=== PATIENT | male | born 1955 | race Hispanic/Latino ===

== ENCOUNTER 2017-01-09 20:22 | Emergency (ER) | payer BC ==
[2017-01-09 20:28] VITALS: BP 148/98; PULSE 71; RESP 16; TEMP 98.4; O2SAT 98
--- NOTE | 2017-01-09 20:52 | ED PDOC ---
HPI: General Adult Time Seen by Provider: 01/09/17 20:30 Chief Complaint (Nursing): Bite Chief Complaint (Provider): Dog Bite History Per: Patient History/Exam Limitations: no limitations Onset/Duration Of Symptoms: Hrs Have you had recent travel within the past 21 days to any of the following countries: [place], [place], [place] or [place]?: No Current Symptoms Are (Timing): Still Present Additional Complaint(s): Alexei Reddy, a 61 year old male, presents to the ED with a dog bite. The patient states that earlier today he was bitten by his brother's dog on his right hand and left forearm. Tetanus is up to date. Denies numbness and tingling. Past Medical History Reviewed: Historical Data, Nursing Documentation, Vital Signs Vital Signs: Last Vital Signs Temp 98.4 F 01/09/17 20:25 Pulse 71 01/09/17 20:25 Resp 16 01/09/17 20:25 BP 148/98 H 01/09/17 20:25 Pulse Ox 98 01/09/17 20:58 - Medical History PMH: No Chronic Diseases - Family History Family History: States: Unknown Family Hx - Immunization History Hx Tetanus Toxoid Vaccination: Yes - Home Medications Home Medications: Ambulatory Orders Medication Instructions Recorded Amoxicillin/Clavulanate [Augmentin 1 tab PO BID #20 tab 01/09/17 500 MG-125 MG] - Allergies Allergies/Adverse Reactions: Allergies Allergy/AdvReac Type Severity Reaction Status Date / Time No Known Allergies Allergy Verified 01/09/17 20:25 Review of Systems Musculoskeletal: Positive for: Other (Bite on right hand and left forearm.) Neurological: Positive for: Other (Denies tingling). Negative for: Numbness Physical Exam - Reviewed Nursing Documentation Reviewed: Yes Vital Signs Reviewed: Yes - Physical Exam Appears: Positive for: Non-toxic, No Acute Distress Extremity: Positive for: Normal ROM, Other (Very superficial puncture wound on the first interdigital webspace, second MCP, fourth MCP and on left volar forearm.). Negative for: Tenderness, Deformity, Swelling Neurologic/Psych: Positive for: Alert, Oriented, Gait - ECG O2 Sat by Pulse Oximetry: 98 (RA) Pulse Ox Interpretation: Normal - Progress ED Course And Treament: Wound irrigated heavily with NS. DSD applied. Medical Decision Making Medical Decision Makin:30 Initial Impression: 61 year old male presenting with a dog bite Scribe Attestation Documented by Sunni Sarah acting as a scribe for Maynor Desir PA-C. MD Scribe Attestation All medical record entries made by the Scribe were at my direction and personally dictated by me. I have reviewed the chart and agree that the record accurately reflects my personal performance of the history, physical exam, medical decision making, and the department course for this patient. I have also personally directed, reviewed, and agree with the discharge instructions and disposition. Disposition - Clinical Impression Clinical Impression: Dog bite - Patient ED Disposition Is Patient to be Admitted: No - Disposition Disposition: Routine/Home Disposition Time: 21:00 Condition: STABLE Prescriptions: Amoxicillin/Clavulanate [Augmentin 500 MG-125 MG] 1 tab PO BID #20 tab Instructions: Animal Bite (ED) Print Language: [place] ISLAND[place]
== END 2017-01-09 21:11 | disposition home or self-care (01) ==
LOC: H.ER 20:22
DX: S61.411A Laceration without foreign body of right hand, initial encounter (principal); W54.0XXA Bitten by dog, initial encounter; Y92.89 Other specified places as the place of occurrence of the external cause

== ENCOUNTER 2018-06-15 10:45 | Inpatient (IN) | payer BC ==
[2018-06-15 10:48] VITALS: BMI 26.6
[2018-06-15] MEDS ORDERED: Iohexol 240 (50 ml) PO ONE (11:16)
[2018-06-15] MEDS ORDERED: Sodium Chloride 0.9% 1,000 ML IV STA (11:17)
[2018-06-15] MEDS ORDERED: Iohexol 240 (50 ml) ONE (11:32)
[2018-06-15 11:35] LABS: SQUAMOUS EPITHIAL < 1 /hpf (0-5); URINE BILIRUBIN NEGATIVE (NEGATIVE); URINE BLOOD SMALL (NEGATIVE); URINE CLARITY CLEAR (Clear); URINE COLOR YELLOW (YELLOW); URINE GLUCOSE (UA) NEG (Normal); URINE LEUKOCYTE ESTERASE NEG Leu/uL (Negative); URINE PROTEIN NEGATIVE (NEGATIVE); URINE UROBILINOGEN 0.2-1.0 mg/dL (0.2-1.0)
[2018-06-15 11:36] LABS: BASO % 0.4 % (0.0-2.0); EOS # 0.2 K/uL (0.0-0.7); EOS % 1.8 % (0.0-4.0); HEMOGLOBIN 14.9 g/dL (12.0-18.0); LYMPH # 1.3 K/uL (1.0-4.3); LYMPH % 13.9 % (20.0-40.0); MEAN CELL VOLUME 98.9 fl (80.0-94.0); MEAN CORPUSCULAR HEMOGLOBIN 32.3 pg (27.0-31.0); MEAN CORPUSCULAR HGB CONC 32.6 g/dL (33.0-37.0); MEAN PLATELET VOLUME 8.4 fl (7.2-11.7); MONO # 0.9 K/uL (0.0-0.8); MONO % 10.4 % (0.0-10.0); NEUT # 6.6 K/uL (1.8-7.0); NEUT % 73.5 % (50.0-75.0); RBC 4.63 Mil/uL (4.40-5.90); RED CELL DISTRIBUTION WIDTH 14.2 % (11.5-14.5)
[2018-06-15 11:46] LABS: ALB/GLOB RATIO 1.3 (1.0-2.1); ALBUMIN 4.2 g/dL (3.5-5.0); ALT/SGPT 57 U/L (21-72); AST/SGOT 37 U/L (17-59); BLOOD UREA NITROGEN 22 mg/dl (9-20); CALCIUM 9.4 mg/dL (8.4-10.2); GFR NON-AFRICAN AMERICAN > 60; LIPASE 51 U/L (23-300)
--- NOTE | 2018-06-15 12:34 | ED PDOC ---
HPI: Abdomen Time Seen by Provider: 06/15/18 11:06 Chief Complaint (Nursing): Abdominal Pain Chief Complaint (Provider): Abdominal Pain History Per: Patient History/Exam Limitations: no limitations Onset/Duration Of Symptoms: Days (x1) Current Symptoms Are (Timing): Still Present Location Of Pain/Discomfort: Epigastric Quality Of Discomfort: Sharp, "Pain" Associated Symptoms: Back Pain (radiating from abdomen) Alleviating Factors: None Last Bowel Movement: Today Additional Complaint(s): 63 year old male with a history of hypertension, high cholesterol and rheumatoid arthritis presents to the ED with sharp, upper abdominal pain radiating to his back since he awoke in the middle of the night. He has taken Simethocone and passed a bowel movement with no relief. Patient regularly takes Amanda, methotrexate and a H2 calixto. He used to take a PPI but switched after a colonoscopy with a physician in [place]. Denies nausea, vomiting, chest pain, dizziness and difficulty breathing. PMD: Dr. Edvin Blankenship Past Medical History Reviewed: Historical Data, Nursing Documentation, Vital Signs Vital Signs: Last Vital Signs Temp 97.9 F 06/15/18 10:48 Pulse 59 L 06/15/18 10:48 Resp 17 06/15/18 10:48 BP 191/94 H 06/15/18 10:48 Pulse Ox 100 06/15/18 10:48 - Medical History PMH: HTN, Hypercholesterolemia, Rheumatoid Arthritis - Surgical History Other surgeries: several orthopedic procedures. Denies history of abdominal surgery - Family History Family History: States: Unknown Family Hx - Immunization History Hx Tetanus Toxoid Vaccination: Yes Hx Influenza Vaccination: Yes - Home Medications Home Medications: Ambulatory Orders Medication Instructions Recorded Adalimumab [Humira] 40 mg SC Q14D 06/15/18 Atorvastatin [Lipitor] 10 mg PO DAILY 06/15/18 Folic Acid 1 mg PO DAILY 06/15/18 Losartan [Cozaar] 50 mg PO DAILY 06/15/18 Meloxicam [Mobic] 15 mg PO DAILY 06/15/18 Methotrexate 10 mg PO WESA 06/15/18 Ranitidine HCl [Zantac] 150 mg PO DAILY 06/15/18 - Allergies Allergies/Adverse Reactions: Allergies Allergy/AdvReac Type Severity Reaction Status Date / Time No Known Allergies Allergy Verified 06/15/18 11:01 Review of Systems ROS Statement: Except As Marked, All Systems Reviewed And Found Negative Constitutional: Negative for: Fever, Malaise, Weight loss Gastrointestinal: Positive for: Abdominal Pain. Negative for: Vomiting, Melena Skin: Negative for: Rash Neurological: Negative for: Headache Physical Exam - Reviewed Nursing Documentation Reviewed: Yes Vital Signs Reviewed: Yes - Physical Exam Appears: Positive for: Non-toxic, No Acute Distress Head Exam: Positive for: ATRAUMATIC, NORMAL INSPECTION, NORMOCEPHALIC Skin: Positive for: Normal Color, Warm, Dry. Negative for: Rash Eye Exam: Positive for: EOMI, Normal appearance, PERRL Neck: Positive for: Normal, Painless ROM, Supple Cardiovascular/Chest: Positive for: Regular Rate, Rhythm. Negative for: Murmur Respiratory: Positive for: Normal Breath Sounds. Negative for: Wheezing, Respiratory Distress Gastrointestinal/Abdominal: Positive for: Tenderness (epigastric). Negative for: Mass, Guarding Extremity: Positive for: Normal ROM (upper and lower extremities). Negative for: Deformity Neurologic/Psych: Positive for: Alert, Oriented. Negative for: Motor/Sensory Deficits - Laboratory Results Result Diagrams: 06/15/18 11:25 06/15/18 11:25 - ECG ECG: Positive for: Interpreted By Me, Viewed By Me ECG Rhythm: Positive for: Sinus Bradycardia. Negative for: ST/T Changes, Nonspecific Changes Rate: 59 O2 Sat by Pulse Oximetry: 100 (RA) Pulse Ox Interpretation: Normal Medical Decision Making Medical Decision Makin:16 Workup for abdominal pain Initial Plan: --Abd Pelvis CT w/ contrast --EKG --CMP --Lipase --Troponin --CBC --NS IV --Omnipaque 50 ml PO --Pepcid 20 mg IV --Toradol 15 mg IVP --UA 12:21 --Abdomen Limited US 12:30 Blood work was remarkable with the exception of a BUN level of 22. Otherwise, normal hemoglobin and negative troponin. urine shows trace microscopic hematuria. Pending imaging and reevaluation. 14:01 Abdomen US FINDINGS: LIVER: Measures 16.99 cm in length. There is diffuse echogenicity of the liver parenchyma. No mass. No intrahepatic bile duct dilatation. GALLBLADDER: The gallbladder is distended. No wall thickening, gallstones or pericholecystic fluid. The sonographic Dickens's sign is negative. COMMON BILE DUCT: Measures increased 4.95 mm. No stones. No dilatation. PANCREAS: Unremarkable as visualized. No mass. No ductal dilatation. RIGHT KIDNEY: Measures 10.9 cm in length. Normal echogenicity. No calculus, mass, or hydronephrosis. There is a 1.4 x 1.5 x 1.6 cm simple cyst in the lower pole and 0.9 x 1.4 x 1.1 cm septated cyst in the lower pole. AORTA: No aneurysmal dilatation. IVC: Unremarkable. OTHER FINDINGS: None . IMPRESSION: Gallbladder distention. No cholelithiasis, wall thickening or pericholecystic fluid. The sonographic Dickens's sign is negative. Mild hepatomegaly. Diffuse increased echogenicity in the liver may reflect hepatic steatosis however parenchymal infectious/ inflammatory etiologies cannot be entirely excluded. Clinical and laboratory correlation is advised. 15:44 --Patient admitted to inpatient care due to calculous cholecystitis. d/w Dr Blankenship PMD, Dr Hampton and surgical brace maker, Dr Blankenship requests Dr Dan for surgery he will inform Scribe Attestation: Documented by Marian Marshall, acting as a scribe for Pablo Tobin III, DO Provider Scribe Attestation: All medical record entries made by the Scribe were at my direction and personally dictated by me. I have reviewed the chart and agree that the record accurately reflects my personal performance of the history, physical exam, medical decision making, and the department course for this patient. I have also personally directed, reviewed, and agree with the discharge instructions and disposition. Disposition - Clinical Impression Clinical Impression: Cholecystitis - Patient ED Disposition Is Patient to be Admitted: Yes Counseled Patient/Family Regarding: Studies Performed, Diagnosis, Need For Followup - Disposition Disposition Time: 13:30 Condition: STABLE - Pt Status Changed To: Hospital Disposition Of: Inpatient - Admit Certification Admit to Inpatient:: After my assessment, the patient will require hospitalization for at least two midnights. This is because of the severity of symptoms shown, intensity of services needed, and/or the medical risk in this patient being treated as an outpatient. - POA Present On Arrival: None
[2018-06-15] MEDS ORDERED: Iohexol 300 100 ML IJ ONE (13:42)
[2018-06-15] MEDS ORDERED: Sodium Chloride 0.9% 50 ML IV ONE (13:43)
--- NOTE | 2018-06-15 14:01 | CARD ---
APPROVED REPORT Date of service: 06/15/2018 EKG Measurement Heart [id number] CT [id number] <Conclusion> Sinus bradycardia Otherwise normal ECG
--- NOTE | 2018-06-15 14:04 | US ---
Date of service: 06/15/2018 HISTORY: RUQ sono, abd pain COMPARISON: None. TECHNIQUE: Sonographic evaluation of the right upper quadrant of the abdomen. FINDINGS: LIVER: Measures 16.99 cm in length. There is diffuse echogenicity of the liver parenchyma. No mass. No intrahepatic bile duct dilatation. GALLBLADDER: The gallbladder is distended. No wall thickening, gallstones or pericholecystic fluid. The sonographic Dickens's sign is negative. COMMON BILE DUCT: Measures increased 4.95 mm. No stones. No dilatation. PANCREAS: Unremarkable as visualized. No mass. No ductal dilatation. RIGHT KIDNEY: Measures 10.9 cm in length. Normal echogenicity. No calculus, mass, or hydronephrosis. There is a 1.4 x 1.5 x 1.6 cm simple cyst in the lower pole and 0.9 x 1.4 x 1.1 cm septated cyst in the lower pole. AORTA: No aneurysmal dilatation. IVC: Unremarkable. OTHER FINDINGS: None . IMPRESSION: Gallbladder distention. No cholelithiasis, wall thickening or pericholecystic fluid. The sonographic Dickens's sign is negative. Mild hepatomegaly. Diffuse increased echogenicity in the liver may reflect hepatic steatosis however parenchymal infectious/ inflammatory etiologies cannot be entirely excluded. Clinical and laboratory correlation is advised.
--- NOTE | 2018-06-15 15:21 | CT ---
Date of service: 06/15/2018 PROCEDURE: CT Abdomen and Pelvis with contrast HISTORY: abdominal pain COMPARISON: None available. TECHNIQUE: CT scan of the abdomen and pelvis was performed after administration of intravenous contrast. Oral contrast was administered. Coronal and sagittal reformatted images were obtained. Contrast dose: 95 cc Omnipaque 300 Radiation dose: Total exam DLP = 666.91 mGy-cm. This CT exam was performed using one or more of the following dose reduction techniques: Automated exposure control, adjustment of the mA and/or kV according to patient size, and/or use of iterative reconstruction technique. FINDINGS: LOWER THORAX: The visualized lungs are clear. LIVER: Mild hepatomegaly and fatty liver. No gross lesion or ductal dilatation. GALLBLADDER AND BILE DUCTS: The gallbladder is distended, there is wall thickening and pericholecystic fluid with small gallstones. There is also focal calcification in posterior gallbladder wall. There is mild diffuse dilatation of the common bile duct. No CT evidence for choledocholithiasis. There is mild dilatation of the cystic duct and there are apparent stones in the cystic duct, the largest measures 4 mm. PANCREAS: Normal in size with homogeneous enhancement. No gross lesion or ductal dilatation. SPLEEN: Mild splenomegaly. Normal enhancement. ADRENALS: No discrete nodule. KIDNEYS AND URETERS: Normal in size with homogeneous enhancement. No hydronephrosis. No solid mass. There are few small simple cortical cysts in the kidneys. VASCULATURE: No aortic aneurysm. Aortic atherosclerotic calcifications are present. BOWEL: The small bowel loops are normal in caliber. The colon is grossly normal in appearance. No bowel wall thickening or obstruction. APPENDIX: Normal appendix. PERITONEUM: Small perihepatic ascites, likely reactive. No free air. LYMPH NODES: No enlarged lymph nodes. BLADDER: Well distended and normal in appearance. REPRODUCTIVE: There is mild there is mild enlargement of the prostate gland with coarse calcifications. Please correlate with PSA levels. BONES: No acute fracture. There is degenerative disc disease at L5-S1. OTHER FINDINGS: There are bilateral small fat containing inguinal hernias.. IMPRESSION: Findings are concerning for acute calculus cholecystitis with stones in the cystic duct, the largest measures 4 mm. Also noted is mild diffuse dilatation of the common bile duct without CT evidence for choledocholithiasis. 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
[2018-06-15] MEDS ORDERED: Piperacillin/Tazobact 3.375 GM in Sodium Chloride 0.9% 100 ML IVPB STA (15:47)
[2018-06-15] MEDS ORDERED: Alum-Mag Hydrox-Simethicone Susp (30 mL) ONE (15:48)
[2018-06-15] MEDS: Alum-Mag Hydrox-Simethicone Susp (30 mL) PO ONE ×2 (15:48→15:52)
[2018-06-15] MEDS ORDERED: Piperacillin/Tazobact 3.375 gm Inj IVPB ONE ×2 (15:51→22:31)
--- NOTE | 2018-06-15 16:56 | CP.PCM.CON ---
<Paloma Escobar - Last Filed: 06/15/18 18:36> History of Present Illness - History of Present Illness History of Present Illness: General Surgery consult note for Dr. Cole consulted for cholecystitis/ cholelithiasis Patient is a 63 yr old male with PMH HTN, HLD, RA, OA who presented to [facility] ED with c/o RUQ abdominal pain with sudden onset 3 am this morning. Patient describes pain as sharp, intermittent and radiating to his back. He denies any alleviating or aggravating factors such as movement, eating or rest. He denies any previous episodes like this. He otherwise denies f/c, BLANTON, n/v, CP< SOB, stool changes, dysuria and extremity pain or weakness. PMD: Dr. Edvin Blankenship PMHx: HTN, HLD, OA, RA Home Meds: Losartan, Humira, Methotrexate, Meloxicam, Folic Acid, Ranitidine FMHx: Father Ulcerative Colitis, Mother of Pancreatic CA. SurgHx: Patient reports he had several Knee surgeries( Right Knee x 4 , Left Knee x2) Social Hx: Lives with family, Denies smoking or recreational drug use. Reports ocassional social drinking. Review of Systems - Review of Systems All systems: reviewed and no additional remarkable complaints except (as p[er HPI) Past Patient History - Past Social History Smoking Status: Never Smoked - CARDIAC Hx Hypercholesterolemia: Yes Hx Hypertension: Yes - MUSCULOSKELETAL/RHEUMATOLOGICAL Hx Rheumatoid Arthritis: Yes - GASTROINTESTINAL Hx Gastrointestinal Disorders: Yes Hx Gastroesophageal Reflux: Yes - PSYCHIATRIC Hx Substance Use: No - SURGICAL HISTORY Hx Surgeries: Yes Other/Comment: +colonoscopy; bilateral knee surgeries x6 - ANESTHESIA Hx Anesthesia: Yes Hx Anesthesia Reactions: No Meds Allergies/Adverse Reactions: Allergies Allergy/AdvReac Type Severity Reaction Status Date / Time No Known Allergies Allergy Verified 06/15/18 11:01 Physical Exam - Constitutional Appears: Well, Non-toxic, No Acute Distress - Head Exam Head Exam: ATRAUMATIC, NORMOCEPHALIC - Eye Exam Eye Exam: EOMI - ENT Exam ENT Exam: Mucous Membranes Moist - Respiratory Exam Respiratory Exam: NORMAL BREATHING PATTERN - Cardiovascular Exam Cardiovascular Exam: REGULAR RHYTHM - GI/Abdominal Exam GI & Abdominal Exam: Soft. absent: Distended, Guarding, Rebound, Tenderness Additional comments: negative schumacher's sign - Extremities Exam Extremities exam: Positive for: pedal pulses present. Negative for: calf tenderness, pedal edema - Back Exam Back exam: absent: CVA tenderness (L), CVA tenderness (R) - Neurological Exam Neurological exam: Alert, Oriented x3 - Psychiatric Exam Psychiatric exam: Normal Affect, Normal Mood - Skin Skin Exam: Dry, Intact, Normal Color, Warm Results - Vital Signs Recent Vital Signs: Last Vital Signs Temp 98.3 F 06/15/18 16:02 Pulse 59 L 06/15/18 16:16 Resp 16 06/15/18 16:02 BP 165/96 H 06/15/18 16:02 Pulse Ox 100 06/15/18 16:16 - Labs Result Diagrams: 06/15/18 11:25 06/15/18 11:25 Labs: Laboratory Results - last 24 hr 06/15/18 06/15/18 06/15/18 11:25 11:25 11:25 WBC 9.0 RBC 4.63 Hgb 14.9 Hct 45.8 MCV 98.9 H MCH 32.3 H MCHC 32.6 L RDW 14.2 Plt Count 234 MPV 8.4 Neut % (Auto) 73.5 Lymph % (Auto) 13.9 L Wharton % (Auto) 10.4 H Eos % (Auto) 1.8 Baso % (Auto) 0.4 Neut # (Auto) 6.6 Lymph # (Auto) 1.3 Wharton # (Auto) 0.9 H Eos # (Auto) 0.2 Baso # (Auto) 0.0 Sodium 138 Potassium 5.0 Chloride 105 Carbon Dioxide 29 Anion Gap 9 L BUN 22 H Creatinine 0.7 L Est GFR ( Amer) > 60 Est GFR (Non-Af Amer) > 60 Random Glucose 110 Calcium 9.4 Total Bilirubin 0.9 AST 37 ALT 57 Alkaline Phosphatase 64 Troponin I < 0.0120 Total Protein 7.4 Albumin 4.2 Globulin 3.1 Albumin/Globulin Ratio 1.3 Lipase 51 Urine Color Yellow Urine Clarity Clear Urine pH 5.0 Ur Specific Veteran 1.023 Urine Protein Negative Urine Glucose (UA) Neg Urine Ketones Negative Urine Blood Small Urine Nitrate Negative Urine Bilirubin Negative Urine Urobilinogen 0.2-1.0 Ur Leukocyte Esterase Neg Urine RBC (Auto) 6 H Urine Microscopic WBC < 1 Ur Squamous Epith Cells < 1 Assessment & Plan - Assessment and Plan (Free Text) Assessment: 63 yr old male with cholithiasis and cholecystitis Plan: IVF Pain control NPO c/w zosyn repeat labs in AM plan for Or tomorrow at 1pm d/w Dr. Kelsey Escobar, PGY 1 <Joel Cole - Last Filed: 06/17/18 20:46> Results - Vital Signs Recent Vital Signs: Last Vital Signs Temp 97.5 F L 06/17/18 07:59 Pulse 62 06/17/18 09:32 Resp 19 06/17/18 07:59 BP 140/84 06/17/18 09:32 Pulse Ox 99 06/17/18 07:59 - Labs Result Diagrams: 06/17/18 07:00 06/17/18 07:00 Labs: Laboratory Results - last 24 hr 06/17/18 06/17/18 07:00 07:00 WBC 12.2 H D RBC 4.29 L Hgb 13.6 Hct 41.1 MCV 95.7 H MCH 31.7 H MCHC 33.1 RDW 14.2 Plt Count 250 MPV 8.3 Neut % (Auto) 79.8 H Lymph % (Auto) 11.2 L Wharton % (Auto) 8.9 Eos % (Auto) 0.0 Baso % (Auto) 0.1 Neut # (Auto) 9.7 H Lymph # (Auto) 1.4 Wharton # (Auto) 1.1 H Eos # (Auto) 0.0 Baso # (Auto) 0.0 Sodium 138 Potassium 4.4 Chloride 105 Carbon Dioxide 30 Anion Gap 7 L BUN 16 Creatinine 0.8 Est GFR ( Amer) > 60 Est GFR (Non-Af Amer) > 60 Random Glucose 114 H Calcium 9.2 Total Bilirubin 1.1 AST 39 ALT 64 Alkaline Phosphatase 42 Total Protein 6.3 Albumin 3.5 Globulin 2.9 Albumin/Globulin Ratio 1.2 Attending/Attestation - Attestation I have personally seen and examined this patient.: Yes I have fully participated in the care of the patient.: Yes I have reviewed all pertinent clinical information: Yes Notes (Text): Pt was seen and examined at bedside Agree with above note and assessment Pt with abdominal pain and nausea Abdomen: Soft, tender in RUQ, ND Labs and Radiology reviewed Ass: Acute Cholecystitis Plan: OR for Lap Cholecystectomy NPO, IVF Consent IV antibiotics Plan d.w pt in detail Risk and benefit explained in detail.
--- NOTE | 2018-06-15 17:06 | CP.PCM.HP ---
<Guille Hodges - Last Filed: 06/15/18 18:23> History of Present Illness - History of Present Illness History of Present Illness: CC: Abdominal pain HPI: 63 Y/O Male with PMHx of HTN, High cholesterol, Rheumatoid Arthritis, Chronnic back pain, who presents to the ED with c/o sharp epigastric abdominal pain that woke him up from his sleep approximately at 3 in the morning, patient states that the pain was 10/10 at its worst, with radiation to the right and left side. Patient reports he took Simethicone with no relief of the pain, he states that nothing made the pain better or worse. Patient denies any associated symptoms like nausea, vomiting, diarrhea, chest pain, palpitations, SOB, chills, or fever. At the time of this encounter patient reports relief of his abdominal pain from 10/10 to 3/10 after receiving pain medication Toradol 15 mg IVP and Pepcid in the ED, patient denies any other acute medical complaint. ROS: 12 point system reviewed and found unremarkable except as per HPI. PMD: Dr. Edvin Blankenship PMHx: HTN, High Cholesterol, Rheumatoid Arthritis, Chronic back pain. Home Meds: Patient is taking Losartan, Humira, Methotrexate, Meloxican, Folic Acid, Ranitidine. FMHx: Father had Ulcerative Colitis, Mother of Pancreatic CA. SurgHx: Patient reports he had several Knee surgeries( Right Knee x 4 , Left Knee x2) Social Hx: Lives with family, Denies smoking or rcreational drug use. Reports ocassional social drinking. Code Status: Full code. ED Course: VS on presentation: BP 191/94, 154/88, HR 59, T 97.9, RR 17 CBC: Hb 14.9, WBC 9.0, Plt 234. Chem: LFT within normal range, Lipase 51, Troponin <0.[address]: concerning for acute calculus cholecystitis with stones in the cystic duct, dilation of the cystic duct. 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 Fatty liver. Abd US: Gallbladder distended, no wall thickening, US Dickens sign negative. EKG: NSR MEds in the ED: Pedcid IV x1 , Toradol x1, Zosyn 3.375 x 1 dose hiven Surgery consulted by Dr. Cole. Patien examined and chart reviewed in the ED. Present on Admission - Present on Admission Any Indicators Present on Admission: No History of DVT/PE: No History of Uncontrolled Diabetes: No Urinary Catheter: No Decubitus Ulcer Present: No Past Patient History - Past Social History Smoking Status: Never Smoked - CARDIAC Hx Hypercholesterolemia: Yes Hx Hypertension: Yes - MUSCULOSKELETAL/RHEUMATOLOGICAL Hx Rheumatoid Arthritis: Yes - GASTROINTESTINAL Hx Gastrointestinal Disorders: Yes Hx Gastroesophageal Reflux: Yes - PSYCHIATRIC Hx Substance Use: No - SURGICAL HISTORY Hx Surgeries: Yes Other/Comment: +colonoscopy; bilateral knee surgeries x6 - ANESTHESIA Hx Anesthesia: Yes Hx Anesthesia Reactions: No Meds Allergies/Adverse Reactions: Allergies Allergy/AdvReac Type Severity Reaction Status Date / Time No Known Allergies Allergy Verified 06/15/18 11:01 Physical Exam - Constitutional Appears: No Acute Distress - Head Exam Head Exam: ATRAUMATIC, NORMOCEPHALIC - Eye Exam Eye Exam: EOMI, PERRL - ENT Exam ENT Exam: Mucous Membranes Moist - Neck Exam Neck exam: Positive for: Full Rom - Respiratory Exam Respiratory Exam: Clear to Auscultation Bilateral. absent: Wheezes - Cardiovascular Exam Cardiovascular Exam: RRR, +S1, +S2 - GI/Abdominal Exam GI & Abdominal Exam: Normal Bowel Sounds, Tenderness (moderate epigastric pain to palpation ). absent: Mass - Extremities Exam Extremities exam: Negative for: pedal edema - Back Exam Back exam: absent: CVA tenderness (L), CVA tenderness (R) - Neurological Exam Neurological exam: Alert, CN II-XII Intact, Oriented x3 - Psychiatric Exam Psychiatric exam: Normal Affect, Normal Mood - Skin Skin Exam: Normal Color, Warm Results - Vital Signs Recent Vital Signs: Last Vital Signs Temp 98.3 F 06/15/18 16:02 Pulse 59 L 06/15/18 16:16 Resp 16 06/15/18 16:02 BP 165/96 H 06/15/18 16:02 Pulse Ox 100 06/15/18 16:16 - Labs Result Diagrams: 06/15/18 11:25 06/15/18 11:25 Labs: Laboratory Results - last 24 hr 06/15/18 06/15/18 06/15/18 11:25 11:25 11:25 WBC 9.0 RBC 4.63 Hgb 14.9 Hct 45.8 MCV 98.9 H MCH 32.3 H MCHC 32.6 L RDW 14.2 Plt Count 234 MPV 8.4 Neut % (Auto) 73.5 Lymph % (Auto) 13.9 L Pitkin % (Auto) 10.4 H Eos % (Auto) 1.8 Baso % (Auto) 0.4 Neut # (Auto) 6.6 Lymph # (Auto) 1.3 Pitkin # (Auto) 0.9 H Eos # (Auto) 0.2 Baso # (Auto) 0.0 Sodium 138 Potassium 5.0 Chloride 105 Carbon Dioxide 29 Anion Gap 9 L BUN 22 H Creatinine 0.7 L Est GFR ( Amer) > 60 Est GFR (Non-Af Amer) > 60 Random Glucose 110 Calcium 9.4 Total Bilirubin 0.9 AST 37 ALT 57 Alkaline Phosphatase 64 Troponin I < 0.0120 Total Protein 7.4 Albumin 4.2 Globulin 3.1 Albumin/Globulin Ratio 1.3 Lipase 51 Urine Color Yellow Urine Clarity Clear Urine pH 5.0 Ur Specific Keyes 1.023 Urine Protein Negative Urine Glucose (UA) Neg Urine Ketones Negative Urine Blood Small Urine Nitrate Negative Urine Bilirubin Negative Urine Urobilinogen 0.2-1.0 Ur Leukocyte Esterase Neg Urine RBC (Auto) 6 H Urine Microscopic WBC < 1 Ur Squamous Epith Cells < 1 Assessment & Plan - Assessment and Plan (Free Text) Assessment: 63 Y/O Male with PMHx of HTN, High cholesterol, Rheumatoid Arthritis, Chronnic b ack pain, who presents to the ED with c/o sharp epigastric abdominal pain admitted for cholelithiasis with acute cholecystitis. Plan: # Cholelithiasis with acute cholecystitis. -Abd CT: concerning for acute calculus cholecystitis and porcelain GB -ABD US: Gallbladder distended, no wall thickening, US Dickens sign negative -Admit to Med surg. -NPO -C/w IVF NS -Surgery consulted, by Dr. Cole, planning for surgery -GI consult, by Dr Hampton, recommendations appreciated -C/w Zosyn 3.375 IV Q6h -C/w Pain management -F/u CBC, BMP in AM -Coags f/u PT, PTT #HTN -C/w Losartan #HLD -Atorvastatin 10 mg po QD #Rheumatoid A -Statble -Continue with Home meds -Folic acid 1 mg PO QD -Ranitidine 150 PO QD DVT PPx -SCDs <Bernard Hawkins D - Last Filed: 06/16/18 10:49> Results - Vital Signs Recent Vital Signs: Last Vital Signs Temp 97.7 F 06/16/18 09:23 Pulse 56 L 06/16/18 09:23 Resp 18 06/16/18 09:23 BP 159/85 H 06/16/18 09:23 Pulse Ox 97 06/16/18 09:23 - Labs Result Diagrams: 06/16/18 04:49 06/16/18 04:49 Labs: Laboratory Results - last 24 hr 06/15/18 06/15/18 06/15/18 11:25 11:25 11:25 WBC 9.0 RBC 4.63 Hgb 14.9 Hct 45.8 MCV 98.9 H MCH 32.3 H MCHC 32.6 L RDW 14.2 Plt Count 234 MPV 8.4 Neut % (Auto) 73.5 Lymph % (Auto) 13.9 L Pitkin % (Auto) 10.4 H Eos % (Auto) 1.8 Baso % (Auto) 0.4 Neut # (Auto) 6.6 Lymph # (Auto) 1.3 Pitkin # (Auto) 0.9 H Eos # (Auto) 0.2 Baso # (Auto) 0.0 PT INR APTT Sodium 138 Potassium 5.0 Chloride 105 Carbon Dioxide 29 Anion Gap 9 L BUN 22 H Creatinine 0.7 L Est GFR ( Amer) > 60 Est GFR (Non-Af Amer) > 60 Random Glucose 110 Calcium 9.4 Phosphorus Magnesium Total Bilirubin 0.9 Direct Bilirubin AST 37 ALT 57 Alkaline Phosphatase 64 Troponin I < 0.0120 Total Protein 7.4 Albumin 4.2 Globulin 3.1 Albumin/Globulin Ratio 1.3 Lipase 51 Urine Color Yellow Urine Clarity Clear Urine pH 5.0 Ur Specific Keyes 1.023 Urine Protein Negative Urine Glucose (UA) Neg Urine Ketones Negative Urine Blood Small Urine Nitrate Negative Urine Bilirubin Negative Urine Urobilinogen 0.2-1.0 Ur Leukocyte Esterase Neg Urine RBC (Auto) 6 H Urine Microscopic WBC < 1 Ur Squamous Epith Cells < 1 Blood Type Antibody Screen BBK History Checked 06/15/18 06/15/18 06/16/18 17:57 18:15 04:49 WBC 5.7 RBC 4.38 L Hgb 14.0 Hct 42.5 MCV 96.9 H D MCH 32.1 H MCHC 33.1 RDW 14.8 H Plt Count 218 MPV 8.4 Neut % (Auto) 49.6 L Lymph % (Auto) 31.4 Pitkin % (Auto) 14.3 H Eos % (Auto) 4.2 H Baso % (Auto) 0.5 Neut # (Auto) 2.8 Lymph # (Auto) 1.8 Pitkin # (Auto) 0.8 Eos # (Auto) 0.2 Baso # (Auto) 0.0 PT 11.9 INR 1.0 APTT 29.6 Sodium Potassium Chloride Carbon Dioxide Anion Gap BUN Creatinine Est GFR ( Amer) Est GFR (Non-Af Amer) Random Glucose Calcium Phosphorus Magnesium Total Bilirubin Direct Bilirubin AST ALT Alkaline Phosphatase Troponin I Total Protein Albumin Globulin Albumin/Globulin Ratio Lipase Urine Color Urine Clarity Urine pH Ur Specific Keyes Urine Protein Urine Glucose (UA) Urine Ketones Urine Blood Urine Nitrate Urine Bilirubin Urine Urobilinogen Ur Leukocyte Esterase Urine RBC (Auto) Urine Microscopic WBC Ur Squamous Epith Cells Blood Type O POSITIVE Antibody Screen Negative BBK History Checked No verified bt 06/16/18 06/16/18 06/16/18 04:49 04:49 09:21 WBC RBC Hgb Hct MCV MCH MCHC RDW Plt Count MPV Neut % (Auto) Lymph % (Auto) Pitkin % (Auto) Eos % (Auto) Baso % (Auto) Neut # (Auto) Lymph # (Auto) Pitkin # (Auto) Eos # (Auto) Baso # (Auto) PT INR APTT Sodium 138 Potassium 4.0 Chloride 107 Carbon Dioxide 28 Anion Gap 7 L BUN 14 Creatinine 0.7 L Est GFR ( Amer) > 60 Est GFR (Non-Af Amer) > 60 Random Glucose 94 Calcium 8.8 Phosphorus 3.4 Magnesium 2.1 Total Bilirubin 1.6 H Direct Bilirubin 0.3 AST 33 ALT 52 Alkaline Phosphatase 45 Troponin I Total Protein 6.3 Albumin 3.5 Globulin 2.8 Albumin/Globulin Ratio 1.2 Lipase Urine Color Urine Clarity Urine pH Ur Specific Keyes Urine Protein Urine Glucose (UA) Urine Ketones Urine Blood Urine Nitrate Urine Bilirubin Urine Urobilinogen Ur Leukocyte Esterase Urine RBC (Auto) Urine Microscopic WBC Ur Squamous Epith Cells Blood Type Antibody Screen BBK History Checked Attending/Attestation - Attestation I have personally seen and examined this patient.: Yes I have fully participated in the care of the patient.: Yes I have reviewed all pertinent clinical information: Yes Notes (Text): 06/16/18 10:48 Patient seen and examined with resident. Case discussed and agreed with assessment and plan of management.
[2018-06-15] MEDS: Sodium Chloride 0.9% 1,000 ML IV SCH (18:06)
[2018-06-15 18:45] LABS: PROTHROMBIN TIME 11.9 Seconds (9.8-13.1)
[2018-06-15 18:48] LABS: PARTIAL THROMBOPLASTIN TIME 29.6 Seconds (25.6-37.1)
[2018-06-15] MEDS: Piperacillin/Tazobact 3.375 GM in Sodium Chloride 0.9% 100 ML IVPB SCH (22:31)
[2018-06-16] MEDS: Piperacillin/Tazobact 3.375 GM in Sodium Chloride 0.9% 100 ML IVPB SCH ×4 (04:50→22:42)
[2018-06-16] MEDS: Sodium Chloride 0.9% 1,000 ML IV SCH ×2 (04:53→23:00)
[2018-06-16 04:54] LABS: BASO % 0.5 % (0.0-2.0); EOS # 0.2 K/uL (0.0-0.7); EOS % 4.2 % (0.0-4.0); LYMPH # 1.8 K/uL (1.0-4.3); LYMPH % 31.4 % (20.0-40.0); MEAN CELL VOLUME 96.9 fl (80.0-94.0); MEAN CORPUSCULAR HEMOGLOBIN 32.1 pg (27.0-31.0); MEAN CORPUSCULAR HGB CONC 33.1 g/dL (33.0-37.0); MEAN PLATELET VOLUME 8.4 fl (7.2-11.7); MONO # 0.8 K/uL (0.0-0.8); MONO % 14.3 % (0.0-10.0); NEUT # 2.8 K/uL (1.8-7.0); NEUT % 49.6 % (50.0-75.0); NRBC % 0.1 % (0.0-0.0); RBC 4.38 Mil/uL (4.40-5.90); RED CELL DISTRIBUTION WIDTH 14.8 % (11.5-14.5); WHITE BLOOD COUNT 5.7 K/uL (4.8-10.8)
[2018-06-16 05:18] LABS: BLOOD UREA NITROGEN 14 mg/dl (9-20); GFR NON-AFRICAN AMERICAN > 60
[2018-06-16 05:19] LABS: CALCIUM 8.8 mg/dL (8.4-10.2)
[2018-06-16 09:43] LABS: ALB/GLOB RATIO 1.2 (1.0-2.1); ALBUMIN 3.5 g/dL (3.5-5.0); BILIRUBIN,DIRECT 0.3 mg/ml (0.0-0.4)
--- NOTE | 2018-06-16 09:51 | CP.PCM.PN ---
<Reginaldo Hamlin - Last Filed: 06/16/18 10:46> Subjective - Date & Time of Evaluation Date of Evaluation: 06/16/18 Time of Evaluation: 09:22 - Subjective Subjective: 63 Y/O Male seen and evaluated in the ED for cholelithiasis with acute cholecystitis. Patient states that yesterday he had an attack of sharp epigastric abdominal pain that woke him up from his sleep approximately at 3 in the morning, patient states that the pain was 10/10 at its worst, with radiation to the right and left side. Patient reports he took Simethicone with no relief of the pain, he states that nothing made the pain better or worse. Patient states that his pain improved and he actually has no pain now. Patient denies any associated symptoms like nausea, vomiting, diarrhea, chest pain, palpitations, SOB, chills, or fever. Objective - Vital Signs/Intake and Output Vital Signs (last 24 hours): Temp Pulse Resp BP Pulse Ox 97.7 F 50 L 16 136/88 100 06/16/18 06:12 06/16/18 06:12 06/16/18 06:12 06/16/18 06:12 06/16/18 06:12 - Medications Medications: Current Medications Sodium Chloride (Sodium Chloride 0.9%) 1,000 mls @ 100 mls/hr IV .Q10H [facility] Last Admin: 06/16/18 04:53 Dose: 100 mls/hr Piperacillin Sod/Tazobactam (Sod 3.375 gm/ Sodium Chloride) 100 mls @ 100 mls/hr IVPB Q6 [facility]; Protocol Last Admin: 06/16/18 04:50 Dose: 100 mls/hr Morphine Sulfate (Morphine) 2 mg IVP Q4 PRN PRN Reason: Pain, moderate (4-7) - Labs Labs: 06/16/18 04:49 06/16/18 04:49 PT 11.9 Seconds (9.8-13.1) 06/15/18 17:57 INR 1.0 06/15/18 17:57 APTT 29.6 Seconds (25.6-37.1) 06/15/18 17:57 - Constitutional Appears: Well, Non-toxic, No Acute Distress - Head Exam Head Exam: ATRAUMATIC, NORMOCEPHALIC - Eye Exam Eye Exam: EOMI, Normal appearance, PERRL Pupil Exam: NORMAL ACCOMODATION, PERRL - ENT Exam ENT Exam: Mucous Membranes Moist, Normal Exam - Neck Exam Neck Exam: Full ROM, Normal Inspection - Respiratory Exam Respiratory Exam: Clear to Ausculation Bilateral - Cardiovascular Exam Cardiovascular Exam: REGULAR RHYTHM, RRR - GI/Abdominal Exam GI & Abdominal Exam: Soft, Normal Bowel Sounds Additional comments: absent: Mass - Extremities Exam Extremities Exam: Normal Capillary Refill, Normal Inspection - Back Exam Back Exam: NORMAL INSPECTION - Neurological Exam Neurological Exam: Alert, Awake, Oriented x3 Neuro motor strength exam: Left Upper Extremity: 5, Right Upper Extremity: 5, Left Lower Extremity: 5, Right Lower Extremity: 5 - Psychiatric Exam Psychiatric exam: Normal Affect, Normal Mood - Skin Skin Exam: Dry, Intact, Normal Color, Warm Assessment and Plan - Assessment and Plan (Free Text) Assessment: 63 Y/O Male patient seen and evaluated for cholelithiasis with acute cholecy stitis. Plan: #Cholelithiasis with acute cholecystitis. -Abd CT: concerning for acute calculus cholecystitis and porcelain GB -ABD US: Gallbladder distended, no wall thickening, US Dickens sign negative -NPO -C/w IVF NS -Surgery consulted, by Dr. Cole, Patient is going for surgery today at 1 pm -GI consult, by Dr Hampton, recommendations appreciated -C/w Zosyn 3.375 IV Q6h -C/w Pain management PRN -F/u CBC, BMP, PT, PTT #HTN -C/w Losartan #HLD -Atorvastatin 10 mg po QD #Rheumatoid A -Stable -Continue with Home meds -Folic acid 1 mg PO QD -Ranitidine 150 PO QD #DVT PPx -SCDs <Radha Garsia - Last Filed: 06/17/18 10:05> Objective - Vital Signs/Intake and Output Vital Signs (last 24 hours): Temp Pulse Resp BP Pulse Ox 97.5 F L 62 19 140/84 99 06/17/18 07:59 18 09:32 18 07:59 06/17/18 09:32 06/17/18 07:59 - Medications Medications: Current Medications Atorvastatin Calcium (Lipitor) 10 mg PO DAILY [facility] Last Admin: 06/17/18 09:32 Dose: 10 mg Sodium Chloride (Sodium Chloride 0.9%) 1,000 mls @ 100 mls/hr IV .Q10H [facility] Last Admin: 06/16/18 23:00 Dose: Not Given Lactated Ringer's (Lactated Ringer's) 1,000 mls @ 125 mls/hr IV .Q8H [facility] Last Admin: 06/17/18 04:58 Dose: 125 mls/hr Ketorolac Tromethamine (Toradol) 10 mg PO Q6 PRN PRN Reason: Pain, Mild (1-3) Losartan Potassium (Cozaar) 50 mg PO DAILY [facility] Last Admin: 06/17/18 09:32 Dose: 50 mg Morphine Sulfate (Morphine) 2 mg IVP Q4 PRN PRN Reason: Pain, moderate (4-7) Ondansetron HCl (Zofran Inj) 4 mg IVP Q6 PRN PRN Reason: Nausea/Vomiting Oxycodone/Acetaminophen (Percocet 5/325 Mg Tab) 2 tab PO Q4 PRN PRN Reason: Pain, moderate (4-7) Stop: 06/19/18 15:47 - Labs Labs: 06/17/18 07:00 06/17/18 07:00 PT 11.9 Seconds (9.8-13.1) 06/15/18 17:57 INR 1.0 06/15/18 17:57 APTT 29.6 Seconds (25.6-37.1) 06/15/18 17:57 Attending/Attestation - Attestation I have personally seen and examined this patient.: Yes I have fully participated in the care of the patient.: Yes I have reviewed all pertinent clinical information, including history, physical exam and plan: Yes Notes (Text): 06/17/18 10:05 Seen, examined, and discussed with resident. Agree with findings and plan as above. Pt for OR. Surgery consult appreciated. Reviewed imaging with Dr. Jones again. Appreciated.
--- NOTE | 2018-06-16 11:26 | RAD ---
Date of service: 06/16/2018 HISTORY: pre-op COMPARISON: No prior. FINDINGS: LUNGS: No active pulmonary disease. PLEURA: No significant pleural effusion identified, no pneumothorax apparent. CARDIOVASCULAR: No atherosclerotic calcification present No radiographic findings to suggest acute or significant cardiovascular disease. OSSEOUS STRUCTURES: No significant abnormalities. VISUALIZED UPPER ABDOMEN: Normal. OTHER FINDINGS: None. IMPRESSION: No active disease.
[2018-06-16] MEDS ORDERED: Sodium Chloride 0.9% 50 ML IV ONE (12:06)
[2018-06-16] MEDS ORDERED: Gadodiamide 287 MG/ML VIAL (15ML) IV ONE (12:06)
--- NOTE | 2018-06-16 13:20 | MRI ---
Date of service: 06/16/2018 PROCEDURE: Magnetic Resonance Cholangiopancreatography HISTORY: COMPARISON: Abdomen and pelvis CT with contrast and limited abdomen ultrasound, both from 06/15/2018. TECHNIQUE: Multiplanar, multisequence MR images of the abdomen were obtained, including heavily T2 weighted MRCP images of the biliary system. Rotating maximum intensity projection images of the biliary system were generated. Omniscan 17 cc was utilized for intravenous contrast with various time dependent fat-suppressed T1 weighted series acquired following contrast administration. Additional multiplanar series were performed prior to intravenous contrast. FINDINGS: MRCP: The common bile duct is of a normal caliber. No evidence of choledocholithiasis. No intrahepatic biliary ductal dilatation. LIVER: Liver is normal in signal intensity and size with trace perihepatic ascites identified. No intrahepatic biliary dilatation. GALLBLADDER: Mild mural thickening is appreciated with pericholecystic fluid borderline for sludge at the neck. No significant common bile duct dilatation or choledocholithiasis. Overall pattern may reflect acalculous cholecystitis. Further supporting the possibility of active cholecystitis is relatively prominent mural enhancement at the gallbladder wall. Diminished signal at the neck of the gallbladder may correspond to mural calcification seen in prior CT. This is an indeterminate pattern by MRI. SPLEEN: Unremarkable. PANCREAS: Unremarkable. ADRENALS: Unremarkable. KIDNEYS: A small cyst is reiterated at the lower pole right kidney exophytic medially with a tiny probable additional cyst too small to characterize at the lower pole more laterally. Years a similar nonenhancing sub cm focus at the midpole left kidney anteriorly. AORTA: No aneurysm. ASCITES: Trace perihepatic and perisplenic ascites. OTHER FINDINGS: None. IMPRESSION: 1. Findings suspicious for active cholecystitis with mural calcification in the neck not excluded. Definite cholelith is not clearly identified and there is no choledocholithiasis either. Normal caliber biliary tree both intra and extrahepatic. Normal caliber pancreatic duct. 2. Lower pole right renal cyst. Nonenhancing sub cm foci at the lower pole right kidney and midpole left kidney likely reflect the same but are too small to characterize. No obstructive uropathy bilaterally. 3. Trace perihepatic and perisplenic ascites.
[2018-06-16] MEDS ORDERED: Midazolam 2 MG/2 ML VIAL ONE (13:41)
[2018-06-16] MEDS ORDERED: Rocuronium 10 mg/ml (5 ml) ONE (13:41)
[2018-06-16] MEDS ORDERED: ePHEDrine 50 mg/ml Inj ONE (13:41)
[2018-06-16] MEDS ORDERED: Propofol 10 mg/ml Inj (20 ML) ONE (13:41)
[2018-06-16] MEDS ORDERED: Lidocaine 4% (Laryng-O-Jet) Kit MM ONE (13:42)
[2018-06-16] MEDS ORDERED: Succinylcholine 200 mg/10 ml Inj IV ONE (13:42)
[2018-06-16] MEDS ORDERED: Lidocaine 1% Inj (20ml) ONE (13:49)
[2018-06-16] MEDS ORDERED: Bupivacaine 0.5% Inj(30mL) ONE (13:49)
[2018-06-16] MEDS ORDERED: Lactated Ringer's 1,000 ML IV ONE (14:05)
[2018-06-16] MEDS ORDERED: Dexamethasone 4 mg/1 ml ONE (14:24)
[2018-06-16] MEDS ORDERED: Neostigmine 1:1000 (1 mg/ml) Inj ONE (15:14)
[2018-06-16] MEDS ORDERED: Sodium Chloride 0.9% 500 ML IV ONE (15:35)
[2018-06-16] MEDS ORDERED: Lactated Ringer's 500 ML IV ONE (15:35)
[2018-06-16] MEDS ORDERED: Oxycodone/Acetaminophen 5/325 mg Tab PO PRN (15:46)
--- NOTE | 2018-06-16 15:48 | PCM.SURG1 ---
Surgeon's Initial Post Op Note - Surgeon's Notes Surgeon: Dr. Cole [employer] Sales Consultant: keith kinney Type of Anesthesia: General Endo Anesthesia Administered By: ilan Pre-Operative Diagnosis: cholecystitis Operative Findings: gallstone in cystic duct Post-Operative Diagnosis: cholecystitis Operation Performed: laparoscopic cholecystectomy Specimen/Specimens Removed: gallbladder Estimated Blood Loss: EBL {In ML}: 10 Blood Products Given: N/A Drains Used: No Drains Post-Op Condition: Good Date of Surgery/Procedure: 06/16/18 Time of Surgery/Procedure: 15:48
[2018-06-16] MEDS: HYDROmorphone 0.5 mg/0.5 ml ISec IVP PRN ×2 (16:10→17:05)
--- NOTE | 2018-06-16 21:21 | CP.PCM.PCO ---
Assessment/Plan - Assessment and Plan (Free Text) Assessment: Pt is seen and examined post lap antoine, POD 0 Pt states that he is feeling well, mild pain when he moves but well controlled with pain meds Denies n/v. Tolerated procedure well. O: vitals reviewed, afebrile GEN: NAD, comfortable H: S1S2 no additional heart sounds L: clear b/l A: mild distention, soft, 4 incision sites noted, covered with dressing. No edema, erythema or exudates noted. Neuro: AAO x 3 Ext: NT, no edema noted A/P: 63 YO male admitted for acute antoine, s/p lap antoine. Doing well POD 0 -cont pain management -will advance diet as tolerated -encouraged early ambulation as tolerated -all questions answered
[2018-06-17 04:44] VITALS: TEMP 97.5
[2018-06-17] MEDS: Lactated Ringer's 1,000 ML IV SCH ×2 (04:58)
[2018-06-17 08:00] VITALS: BP 140/84; PULSE 62; RESP 19; O2SAT 99
[2018-06-17 08:04] LABS: BASO % 0.1 % (0.0-2.0); HEMOGLOBIN 13.6 g/dL (12.0-18.0); LYMPH # 1.4 K/uL (1.0-4.3); LYMPH % 11.2 % (20.0-40.0); MEAN CELL VOLUME 95.7 fl (80.0-94.0); MEAN CORPUSCULAR HEMOGLOBIN 31.7 pg (27.0-31.0); MEAN CORPUSCULAR HGB CONC 33.1 g/dL (33.0-37.0); MEAN PLATELET VOLUME 8.3 fl (7.2-11.7); MONO # 1.1 K/uL (0.0-0.8); MONO % 8.9 % (0.0-10.0); NEUT # 9.7 K/uL (1.8-7.0); NEUT % 79.8 % (50.0-75.0); RBC 4.29 Mil/uL (4.40-5.90); RED CELL DISTRIBUTION WIDTH 14.2 % (11.5-14.5); WHITE BLOOD COUNT 12.2 K/uL (4.8-10.8)
--- NOTE | 2018-06-17 08:32 | CP.PCM.PN ---
<Jennifer Garsia - Last Filed: 06/17/18 08:24> Subjective - Date & Time of Evaluation Date of Evaluation: 06/17/18 Time of Evaluation: 08:25 - Subjective Subjective: Surgery Pt seen and examined. No acute events. Denies fever, CP , SOB. Pain controlled. Voiding freely Objective - Vital Signs/Intake and Output Vital Signs (last 24 hours): Temp Pulse Resp BP Pulse Ox 97.5 F L 62 19 140/84 99 06/17/18 07:59 06/17/18 07:59 06/17/18 07:59 06/17/18 07:59 06/17/18 07:59 - Medications Medications: Current Medications Atorvastatin Calcium (Lipitor) 10 mg PO DAILY [facility] Sodium Chloride (Sodium Chloride 0.9%) 1,000 mls @ 100 mls/hr IV .Q10H [facility] Last Admin: 06/16/18 23:00 Dose: Not Given Lactated Ringer's (Lactated Ringer's) 1,000 mls @ 125 mls/hr IV .Q8H [facility] Last Admin: 06/17/18 04:58 Dose: 125 mls/hr Losartan Potassium (Cozaar) 50 mg PO DAILY [facility] Morphine Sulfate (Morphine) 2 mg IVP Q4 PRN PRN Reason: Pain, moderate (4-7) Ondansetron HCl (Zofran Inj) 4 mg IVP Q6 PRN PRN Reason: Nausea/Vomiting Oxycodone/Acetaminophen (Percocet 5/325 Mg Tab) 2 tab PO Q4 PRN PRN Reason: Pain, moderate (4-7) Stop: 06/19/18 15:47 - Labs Labs: 06/17/18 07:00 06/16/18 04:49 PT 11.9 Seconds (9.8-13.1) 06/15/18 17:57 INR 1.0 06/15/18 17:57 APTT 29.6 Seconds (25.6-37.1) 06/15/18 17:57 - Constitutional Appears: No Acute Distress - Head Exam Head Exam: ATRAUMATIC, NORMAL INSPECTION, NORMOCEPHALIC - Eye Exam Eye Exam: EOMI, Normal appearance, PERRL Pupil Exam: NORMAL ACCOMODATION, PERRL - ENT Exam ENT Exam: Mucous Membranes Moist - Neck Exam Neck Exam: Normal Inspection - Respiratory Exam Respiratory Exam: NORMAL BREATHING PATTERN - Cardiovascular Exam Cardiovascular Exam: REGULAR RHYTHM - GI/Abdominal Exam GI & Abdominal Exam: Soft, Tenderness. absent: Distended Additional comments: Incisions D/I. dressing has small dry stains. - Exam Exam: NORMAL INSPECTION - Extremities Exam Extremities Exam: Full ROM, Normal Capillary Refill, Normal Inspection. absent: Joint Swelling, Pedal Edema - Back Exam Back Exam: NORMAL INSPECTION - Neurological Exam Neurological Exam: Alert, Awake, CN II-XII Intact, Normal Gait, Oriented x3 - Psychiatric Exam Psychiatric exam: Normal Affect, Normal Mood - Skin Skin Exam: Dry, Intact, Normal Color, Warm Assessment and Plan - Assessment and Plan (Free Text) Assessment: POD 1 s/p lap antoine Clear for DC for surgical standpoint follow up at Dr. Umanzor's office in 1-2 week Low fat diet OK to shower Take bandaid off when shower. Keep white strips until comes off naturally. WIll DW Dr. Cole <Joel Cole - Last Filed: 06/17/18 20:45> Objective - Vital Signs/Intake and Output Vital Signs (last 24 hours): Temp Pulse Resp BP Pulse Ox 97.5 F L 62 19 140/84 99 06/17/18 07:59 06/17/18 09:32 06/17/18 07:59 06/17/18 09:32 06/17/18 07:59 - Labs Labs: 06/17/18 07:00 06/17/18 07:00 PT 11.9 Seconds (9.8-13.1) 06/15/18 17:57 INR 1.0 06/15/18 17:57 APTT 29.6 Seconds (25.6-37.1) 06/15/18 17:57 Attending/Attestation - Attestation I have fully participated in the care of the patient.: Yes I have reviewed all pertinent clinical information, including history, physical exam and plan: Yes Notes (Text): Pt is stable clinically Can be DC home with Po levaquin f.u as outpt Plan d.w pt in detail
[2018-06-17 08:35] LABS: ALB/GLOB RATIO 1.2 (1.0-2.1); ALBUMIN 3.5 g/dL (3.5-5.0); ALT/SGPT 64 U/L (21-72); AST/SGOT 39 U/L (17-59); BLOOD UREA NITROGEN 16 mg/dl (9-20); CALCIUM 9.2 mg/dL (8.4-10.2); GFR NON-AFRICAN AMERICAN > 60
--- NOTE | 2018-06-17 09:32 | CP.PCM.DIS ---
<Ajay Georges - Last Filed: 06/17/18 09:26> Provider - Provider Date of Admission: 06/15/18 15:44 Attending physician: Bernard Hawkins MD Time Spent in preparation of Discharge (in minutes): 15 Diagnosis - Discharge Diagnosis (1) Cholecystitis Status: Acute Hospital Course - Lab Results Lab Results: Most Recent Lab Values WBC 12.2 K/uL (4.8-10.8) H D 06/17/18 07:00 RBC 4.29 Mil/uL (4.40-5.90) L 06/17/18 07:00 Hgb 13.6 g/dL (12.0-18.0) 06/17/18 07:00 Hct 41.1 % (35.0-51.0) 06/17/18 07:00 MCV 95.7 fl (80.0-94.0) H 06/17/18 07:00 MCH 31.7 pg (27.0-31.0) H 06/17/18 07:00 MCHC 33.1 g/dL (33.0-37.0) 06/17/18 07:00 RDW 14.2 % (11.5-14.5) 06/17/18 07:00 Plt Count 250 K/uL (130-400) 06/17/18 07:00 MPV 8.3 fl (7.2-11.7) 06/17/18 07:00 Neut % (Auto) 79.8 % (50.0-75.0) H 06/17/18 07:00 Lymph % (Auto) 11.2 % (20.0-40.0) L 06/17/18 07:00 [place] % (Auto) 8.9 % (0.0-10.0) 06/17/18 07:00 Eos % (Auto) 0.0 % (0.0-4.0) 06/17/18 07:00 Baso % (Auto) 0.1 % (0.0-2.0) 06/17/18 07:00 Neut # (Auto) 9.7 K/uL (1.8-7.0) H 06/17/18 07:00 Lymph # (Auto) 1.4 K/uL (1.0-4.3) 06/17/18 07:00 [place] # (Auto) 1.1 K/uL (0.0-0.8) H 06/17/18 07:00 Eos # (Auto) 0.0 K/uL (0.0-0.7) 06/17/18 07:00 Baso # (Auto) 0.0 K/uL (0.0-0.2) 06/17/18 07:00 PT 11.9 Seconds (9.8-13.1) 06/15/18 17:57 INR 1.0 06/15/18 17:57 APTT 29.6 Seconds (25.6-37.1) 06/15/18 17:57 Sodium 138 mmol/l (132-148) 06/17/18 07:00 Potassium 4.4 MMOL/L (3.6-5.0) 06/17/18 07:00 Chloride 105 mmol/L (98-107) 06/17/18 07:00 Carbon Dioxide 30 mmol/L (22-30) 06/17/18 07:00 Anion Gap 7 (10-20) L 06/17/18 07:00 BUN 16 mg/dl (9-20) 06/17/18 07:00 Creatinine 0.8 mg/dl (0.8-1.5) 06/17/18 07:00 Est GFR ( Amer) > 60 06/17/18 07:00 Est GFR (Non-Af Amer) > 60 06/17/18 07:00 Random Glucose 114 mg/dL (75-110) H 06/17/18 07:00 Calcium 9.2 mg/dL (8.4-10.2) 06/17/18 07:00 Phosphorus 3.4 mg/dl (2.5-4.5) 06/16/18 04:49 Magnesium 2.1 MG/DL (1.6-2.3) 06/16/18 04:49 Total Bilirubin 1.1 mg/dl (0.2-1.3) 06/17/18 07:00 Direct Bilirubin 0.3 mg/ml (0.0-0.4) 06/16/18 09:21 AST 39 U/L (17-59) 06/17/18 07:00 ALT 64 U/L (21-72) 06/17/18 07:00 Alkaline Phosphatase 42 U/L (38-126) 06/17/18 07:00 Troponin I < 0.0120 ng/mL (0.00-0.120) 06/15/18 11:25 Total Protein 6.3 G/DL (6.3-8.2) 06/17/18 07:00 Albumin 3.5 g/dL (3.5-5.0) 06/17/18 07:00 Globulin 2.9 gm/dL (2.2-3.9) 06/17/18 07:00 Albumin/Globulin Ratio 1.2 (1.0-2.1) 06/17/18 07:00 Lipase 51 U/L (23-300) 06/15/18 11:25 Urine Color Yellow (YELLOW) 06/15/18 11:25 Urine Clarity Clear (Clear) 06/15/18 11:25 Urine pH 5.0 (5.0-8.0) 06/15/18 11:25 Ur Specific [place] 1.023 (1.003-1.030) 06/15/18 11:25 Urine Protein Negative mg/dL (NEGATIVE) 06/15/18 11:25 Urine Glucose (UA) Neg mg/dL (Normal) 06/15/18 11:25 Urine Ketones Negative mg/dL (NEGATIVE) 06/15/18 11:25 Urine Blood Small (NEGATIVE) 06/15/18 11:25 Urine Nitrate Negative (NEGATIVE) 06/15/18 11:25 Urine Bilirubin Negative (NEGATIVE) 06/15/18 11:25 Urine Urobilinogen 0.2-1.0 mg/dL (0.2-1.0) 06/15/18 11:25 Ur Leukocyte Esterase Neg Shelia/uL (Negative) 06/15/18 11:25 Urine RBC (Auto) 6 /hpf (0-3) H 06/15/18 11:25 Urine Microscopic WBC < 1 /hpf (0-5) 06/15/18 11:25 Ur Squamous Epith Cells < 1 /hpf (0-5) 06/15/18 11:25 Blood Type O POSITIVE 06/15/18 18:15 Blood Type Confirm O POSITIVE 06/16/18 04:10 Antibody Screen Negative 06/15/18 18:15 BBK History Checked No verified bt 06/15/18 18:15 - Hospital Course Hospital Course: 63 y/o man w/ pmh of HTN, High cholesterol, Rheumatoid Arthritis, Chronic back pain, admitted for acute cholecystitis. Patient is POD #1 s/p laparoscopic cholecystectomy. Patient tolerating PO. Patient had episode x1 of vomit yesterday post-op after attempting to eat. Patient has since then denies any further episodes of vomiting. Patient reports mild pain at surgical site but manageable w/o pain medication. Patient seen and cleared by surgery for DC. The patient has been seen, examined, and deemed medically fit for discharge home. The patient is to follow up w/ PMD in 1 week and follow up w/ surgery in 1-2 weeks. Discharge Exam - Head Exam Head Exam: ATRAUMATIC, NORMAL INSPECTION, NORMOCEPHALIC - Eye Exam Eye Exam: Normal appearance - ENT Exam ENT Exam: Mucous Membranes Moist - Neck Exam Neck exam: Full Rom - Respiratory Exam Respiratory Exam: Clear to PA & Lateral, NORMAL BREATHING PATTERN. absent: Rales, Rhonchi, Wheezes, Respiratory Distress - Cardiovascular Exam Cardiovascular Exam: REGULAR RHYTHM - GI/Abdominal Exam GI & Abdominal Exam: Normal Bowel Sounds, Soft, Tenderness (mild at surgical site). absent: Distended, Rebound, Rigid Additional comments: surgical site dressing in place, dry stains, otherwise dry and intact - Extremities Exam Extremities exam: normal inspection - Neurological Exam Neurological exam: Alert, Normal Gait, Oriented x3 - Psychiatric Exam Psychiatric exam: Normal Affect, Normal Mood - Skin Skin Exam: Dry, Intact, Normal Color, Warm Discharge Plan - Follow Up Plan Condition: STABLE Disposition: HOME/ ROUTINE Additional Instructions: follow up at Dr. Umanzor's office in 1-2 week Low fat diet OK to shower Take bandaid off when shower. Keep white strips until comes off naturally. Referrals: Joel Cole MD [Staff Provider] - <Radha Garsia - Last Filed: 06/17/18 09:51> Provider - Provider Date of Admission: 06/15/18 15:44 Attending physician: Bernard Hawkins MD Hospital Course - Lab Results Lab Results: Most Recent Lab Values WBC 12.2 K/uL (4.8-10.8) H D 06/17/18 07:00 RBC 4.29 Mil/uL (4.40-5.90) L 06/17/18 07:00 Hgb 13.6 g/dL (12.0-18.0) 06/17/18 07:00 Hct 41.1 % (35.0-51.0) 06/17/18 07:00 MCV 95.7 fl (80.0-94.0) H 06/17/18 07:00 MCH 31.7 pg (27.0-31.0) H 06/17/18 07:00 MCHC 33.1 g/dL (33.0-37.0) 06/17/18 07:00 RDW 14.2 % (11.5-14.5) 06/17/18 07:00 Plt Count 250 K/uL (130-400) 06/17/18 07:00 MPV 8.3 fl (7.2-11.7) 06/17/18 07:00 Neut % (Auto) 79.8 % (50.0-75.0) H 06/17/18 07:00 Lymph % (Auto) 11.2 % (20.0-40.0) L 06/17/18 07:00 [place] % (Auto) 8.9 % (0.0-10.0) 06/17/18 07:00 Eos % (Auto) 0.0 % (0.0-4.0) 06/17/18 07:00 Baso % (Auto) 0.1 % (0.0-2.0) 06/17/18 07:00 Neut # (Auto) 9.7 K/uL (1.8-7.0) H 06/17/18 07:00 Lymph # (Auto) 1.4 K/uL (1.0-4.3) 06/17/18 07:00 [place] # (Auto) 1.1 K/uL (0.0-0.8) H 06/17/18 07:00 Eos # (Auto) 0.0 K/uL (0.0-0.7) 06/17/18 07:00 Baso # (Auto) 0.0 K/uL (0.0-0.2) 06/17/18 07:00 PT 11.9 Seconds (9.8-13.1) 06/15/18 17:57 INR 1.0 06/15/18 17:57 APTT 29.6 Seconds (25.6-37.1) 06/15/18 17:57 Sodium 138 mmol/l (132-148) 06/17/18 07:00 Potassium 4.4 MMOL/L (3.6-5.0) 06/17/18 07:00 Chloride 105 mmol/L (98-107) 06/17/18 07:00 Carbon Dioxide 30 mmol/L (22-30) 06/17/18 07:00 Anion Gap 7 (10-20) L 06/17/18 07:00 BUN 16 mg/dl (9-20) 06/17/18 07:00 Creatinine 0.8 mg/dl (0.8-1.5) 06/17/18 07:00 Est GFR ( Amer) > 60 06/17/18 07:00 Est GFR (Non-Af Amer) > 60 06/17/18 07:00 Random Glucose 114 mg/dL (75-110) H 06/17/18 07:00 Calcium 9.2 mg/dL (8.4-10.2) 06/17/18 07:00 Phosphorus 3.4 mg/dl (2.5-4.5) 06/16/18 04:49 Magnesium 2.1 MG/DL (1.6-2.3) 06/16/18 04:49 Total Bilirubin 1.1 mg/dl (0.2-1.3) 06/17/18 07:00 Direct Bilirubin 0.3 mg/ml (0.0-0.4) 06/16/18 09:21 AST 39 U/L (17-59) 06/17/18 07:00 ALT 64 U/L (21-72) 06/17/18 07:00 Alkaline Phosphatase 42 U/L (38-126) 06/17/18 07:00 Troponin I < 0.0120 ng/mL (0.00-0.120) 06/15/18 11:25 Total Protein 6.3 G/DL (6.3-8.2) 06/17/18 07:00 Albumin 3.5 g/dL (3.5-5.0) 06/17/18 07:00 Globulin 2.9 gm/dL (2.2-3.9) 06/17/18 07:00 Albumin/Globulin Ratio 1.2 (1.0-2.1) 06/17/18 07:00 Lipase 51 U/L (23-300) 06/15/18 11:25 Urine Color Yellow (YELLOW) 06/15/18 11:25 Urine Clarity Clear (Clear) 06/15/18 11:25 Urine pH 5.0 (5.0-8.0) 06/15/18 11:25 Ur Specific [place] 1.023 (1.003-1.030) 06/15/18 11:25 Urine Protein Negative mg/dL (NEGATIVE) 06/15/18 11:25 Urine Glucose (UA) Neg mg/dL (Normal) 06/15/18 11:25 Urine Ketones Negative mg/dL (NEGATIVE) 06/15/18 11:25 Urine Blood Small (NEGATIVE) 06/15/18 11:25 Urine Nitrate Negative (NEGATIVE) 06/15/18 11:25 Urine Bilirubin Negative (NEGATIVE) 06/15/18 11:25 Urine Urobilinogen 0.2-1.0 mg/dL (0.2-1.0) 06/15/18 11:25 Ur Leukocyte Esterase Neg [place]/uL (Negative) 06/15/18 11:25 Urine RBC (Auto) 6 /hpf (0-3) H 06/15/18 11:25 Urine Microscopic WBC < 1 /hpf (0-5) 06/15/18 11:25 Ur Squamous Epith Cells < 1 /hpf (0-5) 06/15/18 11:25 Blood Type O POSITIVE 06/15/18 18:15 Blood Type Confirm O POSITIVE 06/16/18 04:10 Antibody Screen Negative 06/15/18 18:15 BBK History Checked No verified bt 06/15/18 18:15 Attending/Attestation - Attestation I have personally seen and examined this patient.: Yes I have fully participated in the care of the patient.: Yes I have reviewed all pertinent clinical information, including history, physical exam and plan: Yes Notes (Text): 06/17/18 09:51 Seen, examined, and discussed with resident. Agree with findings and plan as above.
--- NOTE | 2018-06-18 02:10 | OP ---
PROCEDURE DATE: 06/16/2018 PREOPERATIVE DIAGNOSES: Acute cholecystitis, and cholelithiasis. POSTOPERATIVE DIAGNOSES: Acute cholecystitis, and cholelithiasis. PROCEDURES DONE: 1. Laparoscopic cholecystectomy. 2. Laparoscopic drainage of pericholecystic fluid collection. SURGEON: Dr. Kelsey MD SUPERVISOR ABATTOIR: Jennifer aGrsia, PGY-3 Resident. TYPE OF ANESTHESIA: General endotracheal tube anesthesia. ESTIMATED BLOOD LOSS: Around 10 mL. DRAINS: None. PATHOLOGY: Gallbladder with gallstone was sent to Pathology. COMPLICATIONS: None. INTRAOPERATIVE FINDINGS: The patient had extensive edema of the right upper quadrant as well as the Calot's triangle, and drainage of pericholecystic fluid collections as well as the perihepatic area fluid collections was done. DESCRIPTION OF PROCEDURE: On intraoperative steps, this 63-year-old male was diagnosed with acute cholecystitis and cholelithiasis. The patient was consented for laparoscopic cholecystectomy, possible open, brought to the OR, and placed supine on operating table. After induction of the anesthesia, abdomen was prepped and draped in usual sterile fashion. A supraumbilical transverse incision was made. After incising skin and subcutaneous tissue and the fascia, the [place] port was placed. Pneumo was created. Another 12-mm port was placed in the midline below costal margin and two 5-mm ports were placed in the midclavicular and anterior axillary line. After that, grasper and dissector were introduced. Gallbladder appeared to be thickened and edematous, and it was retracted cranially. Calot's triangle appeared to be extremely edematous and thickened. First, Calot's triangle dissection was done and there was fluid collection that was drained. The cystic duct and cystic artery were identified. The top-down approach was done. Critical view of the safety was also identified. The cystic duct and common bile duct junction were dissected and identified, and the patient had stones in the cystic duct that was also milked and the clip was applied below the stone and the stone was removed. The cystic duct and cystic artery were clipped at three places and cut in between two clips in the gallbladder, and the gallbladder was dissected free from the gallbladder fossa, taken in an EndoCatch bag, taken out through the umbilical port site and then sent off the table for the pathology. The aspiration of the fluid from the gallbladder fossa as well as the perihepatic area was done. After proper suction and irrigation, hemostasis was achieved and all the ports were taken out under vision. Pneumo was deflated. The umbilical port site was closed in two layers; the fascia with 0 Vicryl interrupted sutures, skin with 4-0 Monocryl, and dry sterile dressing was applied. The patient tolerated the procedure well. Counts of instrument and gauze were correct. There were no apparent complications. The patient was extubated in the OR and sent to the Postanesthesia Care Unit in stable condition. Joel Cole MD
--- NOTE | 2018-06-19 08:37 | CON ---
DATE: 06/16/2018 REASON FOR CONSULTATION: Abdominal pain. HISTORY OF PRESENT ILLNESS: This is a pleasant 63-year-old man with a history of hypertension and hyperlipidemia who presented yesterday with a complaint of right upper quadrant discomfort which in the past. No nausea or vomiting at this point. No fever or chills. Currently lying in bed, comfortable, in no apparent distress. PAST MEDICAL HISTORY: As above. SURGICAL HISTORY: As above. MEDICATIONS: Reviewed. REVIEW OF SYSTEMS: All other systems have been reviewed and negative apart from the HPI. PHYSICAL EXAMINATION: VITAL SIGNS: Here in the hospital are grossly unremarkable. GENERAL: A pleasant middle-aged man, lying in bed, comfortable, in no apparent distress. HEENT: Head is normocephalic and atraumatic. Eyes: Pupils are equally reactive to light bilaterally. No conjunctival pallor or icterus. NECK: Supple. Normal range of motion. No lymphadenopathy appreciated. LUNGS: Coarse breath sounds bilaterally. HEART: S1 and S2. Regular rate and rhythm. No murmurs appreciated. ABDOMEN: Soft. Some discomfort. No rebound. No guarding. RECTAL: Deferred. EXTREMITIES: Pulses present bilaterally. SKIN: Warm, dry, and intact. NEUROLOGIC: A and O x3. LABORATORY DATA: Labs and radiology have been reviewed. WBC is 9, hemoglobin 14.9, hematocrit 45.8. INR 1. LFTs are essentially unremarkable. Ultrasound shows thickened gallbladder wall, possibly . ASSESSMENT AND PLAN: This is a 63-year-old man with possible gallbladder cholecystitis. Surgical consultation appreciated. Thank you for the consult. Pablo Hampton MD/ PhD
== END 2018-06-17 11:27 | disposition home or self-care (01) | DRG 419 ==
LOC: H.ER 10:45 → H.ERHOLD 15:44 → H.MEDSURG1 06-16 18:50
PROC: 0F944ZZ Drainage of Gallbladder, Percutaneous Endoscopic Approach (ICD-10-PCS; 2018-06-16)
PROC: 0FT44ZZ Resection of Gallbladder, Percutaneous Endoscopic Approach (ICD-10-PCS; principal; 2018-06-16 12:00)
DX: K80.00 Calculus of gallbladder with acute cholecystitis without obstruction (principal); M06.9 Rheumatoid arthritis, unspecified; Z79.1 Long term (current) use of non-steroidal anti-inflammatories (NSAID); Z80.0 Family history of malignant neoplasm of digestive organs; Z90.49 Acquired absence of other specified parts of digestive tract; G89.29 Other chronic pain; Z79.899 Other long term (current) drug therapy; M54.9 Dorsalgia, unspecified; R16.0 Hepatomegaly, not elsewhere classified; E78.00 Pure hypercholesterolemia, unspecified; E78.5 Hyperlipidemia, unspecified; I10 Essential (primary) hypertension; K21.9 Gastro-esophageal reflux disease without esophagitis